=== PATIENT | male | born 1975 | race Caucasian/White ===

== ENCOUNTER 2016-06-05 12:06 | Inpatient (IN) | payer BC, OTHER ==
[~2016-06-05] VITALS: Ht 182.9 cm; Wt 93.0 kg
[2016-06-05] VITALS (8 sets, daily range): BP systolic 130–152; BP diastolic 62–80; PULSE 76–86; RESP 18–20; TEMP 98.3–98.7; O2SAT 97–100
[~2016-06-05 12:06] MED LIST: MUPI2%T TOP; TRAM50 PO
[2016-06-05] MEDS ORDERED: SODIUM CHLOR 0.9% 1000 ML INJ 1,000 ML IV SCH (12:19)
[2016-06-05] MEDS ORDERED: ONDANSETRON HCL 4 MG/2 ML VIAL IV PUSH ONE (12:30)
[2016-06-05] MEDS ORDERED: MORPHINE SULFATE 4 MG/ML INJ IV PUSH ONE (12:30)
[2016-06-05] MEDS ORDERED: TETANUS/DIPHTHERIA TOXOID ADULT 0.5 ML VIAL IM ONE (12:30)
[2016-06-05] MEDS ORDERED: SODIUM CHLORIDE 0.9% FLUSH 10 ML FLUSH IVF PRN (12:30)
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
[2016-06-05 13:06] LABS: AUTOMATED NEUTROPHIL # 4.7 TH/MM3 (1.8-7.7); BASOPHIL # 0.1 TH/MM3 (0-0.2); BASOPHIL % 0.7 % (0.0-2.0); EOSINOPHIL # 0.6 TH/MM3 (0-0.4); EOSINOPHIL % 6.7 % (0.0-4.0); HEMATOCRIT 45.8 % (39.0-51.0); HEMO FLAGS DIFF FINAL; LYMPH % 32.2 % (9.0-44.0); LYMPHOCYTE # 2.8 TH/MM3 (1.0-4.8); MEAN CELL VOLUME 91.6 FL (80.0-100.0); MEAN CORPUSCULAR HEMOGLOBIN 32.3 PG (27.0-34.0); MEAN CORPUSCULAR HGB CONC 35.2 % (32.0-36.0); MONO % 7.8 % (0.0-8.0); NEUT % 52.6 % (16.0-70.0); PLATELET COUNT 273 TH/MM3 (150-450); RED BLOOD COUNT 5.01 MIL/MM3 (4.50-5.90); RED CELL DISTRIBUTION WIDTH 13.3 % (11.6-17.2); WHITE BLOOD COUNT 8.8 TH/MM3 (4.0-11.0)
[2016-06-05 13:18] LABS: APTT (PATIENT) 24.6 SEC (24.3-30.1); PROTHROMBIN TIME - PATIENT 10.9 SEC (9.8-11.6)
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
[2016-06-05 13:32] LABS: BICARBONATE 26.6 MEQ/L (21.0-32.0); POTASSIUM 4.2 MEQ/L (3.5-5.1)
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
[2016-06-05] MEDS ORDERED: PROPOFOL 200 MG/20 ML AMP IV ONE (15:00)
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
[2016-06-05] MEDS ORDERED: LIDOCAINE HCL 1% 50 ML VIAL INFIL ONE (15:30)
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
[2016-06-05] MEDS: oxyCODONE/ACETAMINOPHEN 7.5 MG/325 MG TAB PO PRN ×2 (17:35→21:20)
[2016-06-06 00:40] VITALS: BP 148/85; PULSE 74; RESP 19; TEMP 99.9; O2SAT 98
[2016-06-06] MEDS: oxyCODONE/ACETAMINOPHEN 7.5 MG/325 MG TAB PO PRN ×2 (01:29→05:16)
[2016-06-06 04:11] VITALS: BP 142/69; PULSE 76; RESP 19; TEMP 99.2; O2SAT 98
[2016-06-06] MEDS ORDERED: VANCOMYCIN HCL 1000 MG VIAL ONE (07:01)
[2016-06-06] MEDS ORDERED: ceFAZolin INJ 1,000 MG VIAL ONE (07:01)
[2016-06-06] MEDS ORDERED: GENTAMICIN SULFATE 80 MG/2 ML VIAL ONE (07:01)
[2016-06-06] MEDS ORDERED: SODIUM CHLOR 0.9% 250 ML INJ 250 ML ONE (07:01)
[2016-06-06 07:02] VITALS: BP 127/74; PULSE 73; RESP 16; TEMP 98.6; O2SAT 96
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
[2016-06-06] MEDS ORDERED: MIDAZOLAM HCL 2 MG/2 ML VIAL ONE (07:28)
[2016-06-06] MEDS ORDERED: FAMOTIDINE 20 MG/2 ML VIAL ONE (07:28)
[2016-06-06] MEDS ORDERED: ACETAMINOPHEN 1000 MG/100 ML VIAL IV ONE (07:31)
--- NOTE | 2016-06-06 08:41 | PD.OP ---
cc: Alex Rasmussen MD Operative Report Date of Surgery: Jun 06, 2016 Preoperative Diagnosis: Right distal fibula fracture, right ankle posterior malleolus fracture Postoperative Diagnosis: Procedure: Open reduction total fixation right distal fibula, open reduction fixation right ankle posterior malleolus, stress exam of syndesmosis under anesthesia Anesthesia: Gen. Surgeon: Alex Rasmussen Research Neuropsychologist(s): Jacobo Garsia PA-C The surgical procedure was assisted by my physician assistant banquet manager. My P.A. presence was necessary throughout this case for the manipulation and positioning of the surgical extremity. My P.A. was assisting me throughout the duration of this procedure. The skill set of a physician assistant banquet manager was medically necessary to complete this procedure. During the surgical case the instructor adjunct surgical technician was working at the back table and the physician assistant banquet manager was directly assisting me. Operation and Findings: Patient was seen and evaluated preoperatively and found to have a displaced ankle fracture. Informed consent was obtained after a detailed discussion of risk and benefits of surgery. The operative site was marked. Patient was brought to the OR, placed on the OR table, and given IV sedation and general endotracheal anesthesia. IV antibiotics were given preoperatively. A timeout procedure was performed. The left leg was prepped with alcohol followed by Hibiclens and draped in the usual sterile fashion. Attention was turned towards the distal fibula. A four-inch incision was made over the distal fibula. The subcutaneous tissue was dissected with Bovie. The fracture site was visualized. The fracture site was cleaned with curets. The fracture was now reduced. The fracture keyed into anatomic alignment. K-wires were used to h old provisional fixation. A Synthes plate was selected. The plate was provisionally held to bone with K-wires. 3.5 cortical screws were used to compress the plate to bone. Multiple screws were placed above and below the fracture. Next attention was turned towards the posterior malleolus. A large pointed tenaculum was placed behind the fibula to capture the posterior malleolus fragment. A small purchase incision was made anteriorly. The fracture fragment was manipulated and keyed into excellent alignment. Multiplanar fluoroscopy confirmed well aligned fracture. 2 guidepins for the 4.0 cannulated screws were placed in a percutaneous fashion across the fracture. Fluoroscopy was used to confirm guidepin placement. Cannulated drill was placed over the guidepin. 2 appropriate length screws were now placed. Good compression was applied. Fluoroscopy confirmed well aligned fracture with well-placed hardware. Next, attention was turned to the syndesmosis. The syndesmosis was stressed. There was no widening of the syndesmosis with external rotation of the ankle. Incisions were thoroughly irrigated. The subcutaneous tissue was closed with 3- 0 Vicryl and the skin was closed with 3-0 nylon. Sterile dressings were applied. A well molded well-padded splint was applied. The patient was transferred to Recovery in stable condition. Needle and sponge counts were correct. Alex Rasmussen MD Jun 06, 2016 08:41
[2016-06-06] MEDS ORDERED: HYDR-3366 PO (08:42)
[2016-06-06] MEDS ORDERED: PROPOFOL 200 MG/20 ML AMP IV ONE (08:43)
[2016-06-06] MEDS ORDERED: KETOROLAC TROMETHAMINE 60 MG/2 ML (IM) VIAL IM ONE (08:43)
[2016-06-06] MEDS ORDERED: ONDANSETRON HCL 4 MG/2 ML VIAL IV PUSH ONE (08:44)
[2016-06-06] MEDS ORDERED: ONDANSETRON HCL 4 MG/2 ML VIAL IVP PRN (08:45)
[2016-06-06] MEDS ORDERED: Post-op Orders (for Pharmacy) MISC XX ONE (08:45)
[2016-06-06] MEDS ORDERED: MORPHINE SULFATE 4 MG/ML INJ IV PUSH PRN (08:45)
[2016-06-06] MEDS ORDERED: DO NOT ADM ANY ANTICOAGULANT DRUGS PRN (09:00)
[2016-06-06] MEDS ORDERED: *morphine SULFATE 8 MG/ML PERIprocedure ONLY ONE (09:07)
[2016-06-06] MEDS ORDERED: fentaNYL CITRATE 250 MCG/5 ML AMP ONE (09:09)
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
[2016-06-06 11:50] VITALS: O2SAT 98
[2016-06-06 12:08] VITALS: BP 136/80; PULSE 73; RESP 16; TEMP 96.4; O2SAT 96
[2016-06-06] MEDS: ACETAMINOPHEN/HYDROcodone 325 MG/10 MG TAB PO PRN ×2 (12:09→15:58)
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
[2016-06-06 15:20] VITALS: BP 130/65; PULSE 72; RESP 16; TEMP 98; O2SAT 96
[2016-06-06] MEDS ORDERED: ceFAZolin 2 GM PREMIX 50 ML IV SCH (16:00)
[2016-06-06] MEDS ORDERED: GETGO ROLLING W1 MI1 (17:23)
== END 2016-06-06 18:21 | disposition home or self-care (01) | DRG 494 ==
LOC: NEPE 12:06 → NEDA 15:34 → N06A 19:50
PROVIDERS: ADMIT Internal Medicine; ATTEND Internal Medicine
PROC: 0HQFXZZ Repair Right Hand Skin, External Approach (ICD-10-PCS; principal; 2016-06-05)
PROC: 0HQFXZZ Repair Right Hand Skin, External Approach (ICD-10-PCS; 2016-06-05)
PROC: 0QSJ04Z Reposition Right Fibula with Internal Fixation Device, Open Approach (ICD-10-PCS; 2016-06-06)
PROC: 0QHG04Z Insertion of Internal Fixation Device into Right Tibia, Open Approach (ICD-10-PCS; 2016-06-06)
DX: S82.851A Displaced trimalleolar fracture of right lower leg, initial encounter for closed fracture (principal); S61.411A Laceration without foreign body of right hand, initial encounter; V29.88XA Motorcycle rider (driver) (passenger) injured in other specified transport accidents, initial encounter; Y93.I9 Activity, other involving external motion; Y92.410 Unspecified street and highway as the place of occurrence of the external cause
CPT/HCPCS: 12002; 27840; 70450; 71010; 72125; 73130; 73552; 73600; 73610; 73630; 73700; 74176; 76000; 80048; 85025; 85610; 85730; 86850; 86900; 86901; 90471; 90714; 94150; 96361; 96374; 96375; 99152; C1713; J0131; J0690; J1580; J1885; J2250; J2270; J2405; J3010; J3370; J7030; J7050